=== PATIENT | female | born 1950 | race Caucasian/White ===

== ENCOUNTER 2016-11-18 13:10 | Inpatient (IN) | payer OTHER ==
[2017-01-13] MEDS ORDERED: TRANEXAMIC ACID 3,000 MG in NS 50 ML IRR ONE (06:00)
[2017-01-13] MEDS ORDERED: ROPIVACAINE 0.2% 80 MG, EPINEPHrine 0.2 MG, KETOROLAC TROMETHAMINE 30 MG in BAG 0 ML IU ONE (06:00)
[2017-01-13] MEDS ORDERED: TRANEXAMIC ACID 3,000 MG/50 ML BAG IRR ONE (09:14)
--- NOTE | 2017-01-13 09:29 | PDHPUP ---
History & Physical Update H&P update statement: This history and physical update is based on an assessment of the patient which was completed after admission or registration (within 24 hours), but prior to the surgery/procedure. H&P update: H&P reviewed & patient examined, no change in patient's condition since H&P completed
[2017-01-13] MEDS ORDERED: FAMOTIDINE 20 MG TAB PO ONE (09:43)
[2017-01-13] MEDS ORDERED: ACETAMINOPHEN 325 MG TAB PO ONE (09:43)
[2017-01-13] MEDS ORDERED: DEXAMETHASONE 4 MG/ML VIAL IVP ONE (09:43)
[2017-01-13] MEDS ORDERED: ceFAZolin 2 GM/DEXTROSE 100 ML IV ONE (09:43)
[2017-01-13] MEDS ORDERED: LIDOCAINE 1% 2 ML INJ ID PRN (09:44)
[2017-01-13] MEDS ORDERED: LR 1,000 ML IV ONE (09:44)
[2017-01-13] MEDS ORDERED: MIDAZOLAM 2 MG/2 ML VIAL IVP ONE (11:34)
--- NOTE | 2017-01-13 11:35 | PDANEPAE ---
ANE History of Present Illness Left hip osteoarthritis ANE Past Medical History - Cardiovascular History Hx Hypertension: No Hx Arrhythmias: No Hx Chest Pain: No Hx Coronary Artery / Peripheral Vascular Disease: No Hx CHF / Valvular Disease: No Hx Palpitations: No - Pulmonary History Hx COPD: No Hx Asthma/Reactive Airway Disease: No Hx Recent Upper Respiratory Infection: No Hx Oxygen in Use at Home: No Hx Sleep Apnea: Yes Sleep Apnea Screening Result - Last Documented: Positive Pulmonary History Comment: sleep apnea - Neurologic History Hx Cerebrovascular Accident: No Hx Seizures: No Hx Dementia: No - Endocrine History Hx Diabetes: No - Renal History Hx Renal Disorders: No - Liver History Hx Hepatic Disorders: No - Neurological & Psychiatric Hx Hx Neurological and Psychiatric Disorders: No - Cancer History Hx Cancer: No - Congenital Disorder History Hx Congenital Disorders: No - GI History Hx Gastrointestinal Disorders: Yes Gastrointestinal History Comment: acid reflux - Chronic Pain History Chronic Pain: Yes (left hip) - Surgical History Prior Surgeries: right hip replacement. left shoulder debridement 2011 ANE Review of Systems Review of Systems: - Exercise capacity METS (RN): 4 METS ANE Patient History - Allergies Allergies/Adverse Reactions: Penicillins Allergy (Verified 01/08/17 10:23) Rash - Home Medications Home Medications: Herbals/Supplements -Info Only 1 ea PO DAILY 01/08/17 [Last Taken Unknown] - NPO status NPO Since - Liquids (Date): 01/13/17 NPO Since - Liquids (Time): 07:00 NPO Since - Solids (Date): 01/12/17 NPO Since - Solids (Time): 19:00 - Smoking Hx Smoking Status: Former smoker - Family Anes Hx Family Hx Anesthesia Complications: none ANE Labs/Vital Signs - Vital Signs Blood Pressure: 137/74 Heart Rate: 52 Respiratory Rate: 16 O2 Sat (%): 96 Height: 170.18 cm Weight: 68.492 kg ANE Physical Exam - Airway Neck exam: FROM Mallampati Score: Class 3 Mouth exam: normal dental/mouth exam - Pulmonary Pulmonary: no respiratory distress - Cardiovascular Cardiovascular: regular rate and rhythym - ASA Status ASA Status: II ANE Anesthesia Plan Anesthesia Plan: MAC, spinal
[2017-01-13] MEDS ORDERED: MIDAZOLAM 2 MG/2 ML VIAL ONE (11:37)
[2017-01-13] MEDS ORDERED: PROPOFOL/EMULSION 500 MG/50 ML BOTTLE IV ONE (11:43)
[2017-01-13] MEDS ORDERED: NALOXONE HCL 0.4 MG/ML INJ IVP PRN ×2 (12:18→12:19)
[2017-01-13] MEDS ORDERED: HYDROCODONE/APAP 5/325 TAB PO PRN (12:19)
[2017-01-13] MEDS ORDERED: PROMETHAZINE HCL 25 MG/ML INJ IVP PRN ×2 (12:19→13:06)
[2017-01-13] MEDS ORDERED: ONDANSETRON 4 MG/2 ML VIAL IVP PRN ×2 (12:19→13:06)
[2017-01-13] MEDS ORDERED: DEXAMETHASONE 4 MG/ML VIAL ONE (13:05)
[2017-01-13] MEDS ORDERED: ONDANSETRON 4 MG/2 ML VIAL ONE (13:05)
--- NOTE | 2017-01-13 13:05 | POSTOPPROG ---
Post Op Note Date of Operation: 01/13/17 Surgeon: Rafat Dunn Dry Kiln Loader: yaron gurrola Anesthesiologist: zunilda Anesthesia: IV Sedation, Spinal Pre-op Diagnosis: L hip OA Post-op Diagnosis: L hip OA Indication: failed conservative therapies Procedure: L RAYMON Inf/Abcess present in the surg proc area at time of surgery?: No EBL: Minimal
[2017-01-13] MEDS ORDERED: POLYETHYLENE GLYCOL 3350 17 GM PKT PO PRN (13:06)
[2017-01-13] MEDS ORDERED: PROMETHAZINE HCL 25 MG SUPPR PR PRN (13:06)
[2017-01-13] MEDS ORDERED: DIPHENOXYLATE/ATROPINE LOMOTIL 1 TAB PO PRN (13:06)
[2017-01-13] MEDS ORDERED: MAGNESIUM HYDROXIDE 30 ML UDCUP PO PRN (13:06)
[2017-01-13] MEDS ORDERED: diphenhydrAMINE 25 MG CAP PO PRN (13:06)
[2017-01-13] MEDS ORDERED: ONDANSETRON DISINTEGRATING 4 MG TAB PO PRN (13:06)
[2017-01-13] MEDS ORDERED: TEMAZEPAM 15 MG CAP PO PRN (13:06)
[2017-01-13] MEDS ORDERED: METOCLOPRAMIDE 10 MG/2 ML VIAL IVP PRN (13:06)
[2017-01-13] MEDS ORDERED: LACTULOSE 20 GM/30 ML UDCUP PO PRN (13:06)
[2017-01-13] MEDS ORDERED: BISACODYL 10 MG SUPP PR PRN (13:06)
--- NOTE | 2017-01-13 13:16 | POSTANESTH ---
Post Anesthetic Evaluation Cardiovascular Status: Normal, Stable Respiratory Status: Normal, Stable Level of Consciousness/Mental Status: Can Participate in Eval Pain Control: Adequate, Prn Tx Ordered Nausea/Vomiting Control: Adequate, Prn Tx Ordered Complications Possibly Related to Anesthesia: None Noted
[2017-01-13] MEDS ORDERED: LR 1,000 ML IV SCH (13:30)
[2017-01-13] MEDS ORDERED: fentaNYL 100 MCG/2 ML INJ ONE (13:49)
[2017-01-13] MEDS: fentaNYL 100 MCG/2 ML INJ IVP PRN ×2 (13:50→14:21)
[2017-01-13] MEDS: oxyCODONE IR 5 MG TAB PO PRN ×2 (15:14→16:44)
[2017-01-13] MEDS: ACETAMINOPHEN 325 MG TAB PO SCH ×2 (17:58→23:27)
[2017-01-13] MEDS: CYCLOBENZAPRINE 10 MG TAB PO PRN (17:59)
[2017-01-13] MEDS: ceFAZolin 2 GM/DEXTROSE 100 ML IV SCH (20:32)
[2017-01-13] MEDS: FAMOTIDINE 20 MG TAB PO SCH (20:32)
[2017-01-13] MEDS: SENNOSIDES/DOCUSATE SODIUM TAB PO SCH (20:33)
[2017-01-13] MEDS: ASPIRIN 325 MG TAB PO SCH (22:15)
[2017-01-14] MEDS: ceFAZolin 2 GM/DEXTROSE 100 ML IV SCH (04:58)
[2017-01-14] MEDS: ACETAMINOPHEN 325 MG TAB PO SCH (04:59)
--- NOTE | 2017-01-14 05:41 | GOP ---
[f rep st] OPERATIVE REPORT DATE OF OPERATION: 01/13/2017 SURGEON: Iesha Dunn MD TRUCK GREASER: Deric Espinosa PA-C. ANESTHESIA: Spinal. PREOPERATIVE DIAGNOSIS: Left hip osteoarthritis POSTOPERATIVE DIAGNOSIS: Left hip osteoarthritis. PROCEDURE PERFORMED: Total hip arthroplasty with x-ray. FINDINGS: ESTIMATED BLOOD LOSS: 200 cc. INDICATIONS: The patient has progressively worsening arthritis of the hip which has failed medical m anagement. The patient understands the treatment options including continued non-operative care and has selected surgical intervention. The patient has decided to undergo total hip arthroplasty via th e direct anterior approach, understanding the risks of the procedure including, but not limited to, n eurovascular injury, infection, persistent pain, component wear and loosening, deep venous thrombosis , pulmonary embolism, limb length inequality, hip instability (including dislocation), and intra-oper ative fractures. DESCRIPTION OF PROCEDURE: After proper identification of the patient including verification and mayank ing the surgical site, the patient was brought to the operating room and placed in the supine positio n. All bony prominences were well padded. Anesthesia was induced without complication and intraveno us prophylactic antibiotics were administered prior to skin incision. The operative leg was placed in the Trumpf Arch table extension and the well leg in a Yellofin leg ho lder. The patient was prepped and draped in the usual sterile fashion. The C-arm was draped for int ra-operative fluoroscopy to check acetabular position, femoral component position including leg lengt h and femoral offset. Attention was then drawn to surgical exposure of the hip. An incision was made with a #10 [place] r blade starting 3 cm lateral and 3 cm distal to the anterior superior iliac spine measuring 8-10 cm and coursing distally toward the greater trochanter. The skin and subcutaneous tissues were divided sharply down to the fascia terry. The fascia terry was incised in line with the skin incision exposing the underlying tensor fascia terry muscle. The muscle was bluntly elevated from the fascia and the f irst extracapsular Cobra retractor was placed laterally at the junction of the superior femoral neck and greater trochanter. The lateral femoral circumflex vessels were identified, cauterized, and divi ded with the Aquamantys bipolar cautery. The deep investing fascia of the TFL was divided to allow p sophy mobilization of the muscle preventing damage during the retraction. The reflected head of the rectus femoris muscle was elevated off the anterior hip capsule and a medial Cobra retractor was plac ed just proximal to the lesser trochanter. The anterior capsulotomy was made sharply from the superolateral acetabulum to the saddle junction of the superior femoral neck and greater trochanter, then coursing inferomedial towards the lesser troc hanter. The retractors were then placed in the intracapsular position for femoral neck osteotomy. C orresponding to pre-operative templating, the osteotomy was made with the oscillating saw carefully p rotecting the greater trochanter and soft tissues. The femoral head was removed from the acetabulum with a corkscrew and confirmed to be severely arthritic with exposed bone, deformity and osteophytes. Similar findings were confirmed in the acetabulum. The Arch table extension was then placed in 40 degrees external rotation. Attention was then drawn to the acetabular preparation. After placement of the anterior and posterio r Cobra retractors outside the labrum and intracapsular, the circumferential labrum was removed sharp ly. The foveal contents were then removed and hemostasis obtained with cautery. The first reamer selected was sized using the removed femoral head. Reaming began with medialization and then commenced in 2 mm increments at 45 degrees of abduction and 15 degrees of anteversion using fluoroscopic navigation. Reaming ceased 1 mm less than the definitive acetabular component and liss esponded to the pre-operative templating. The final acetabular component was inserted using fluorosc opy to achieve proper orientation yielding excellent purchase and stability in the acetabulum. The f inal acetabular liner was then placed and its seating confirmed. Attention was then turned to the femur. The Arch table extension was placed in extension and adducti on, delivering the osteotomized femoral neck into the wound. A 2-pronged femoral elevator was placed at the calcar and another at the tip of the greater trochanter. The posterolateral capsule was rele ased with cautery allowing mobilization of the femur lateral and anterior for preparation. The exter nal rotators were visualized and preserved. A curette and rongeur were used to open the starting poi nt for broaching. Serial broaching started with the #0 broach and ended with the broach that exhibit ed excellent fit in the proximal femur. A change in pitch during mallet strikes was accompanied by t he inability to advance the broach any further. The trial reduction was performed and fluoroscopic n avigation was utilized to check limb length. Adjustments were made to equalize limb length according ly. After the final trials were accepted they were removed and the wound was copiously lavaged. The femo ral component was seated to the same depth as the final broach and the femoral head was impacted onto the clean trunnion. The hip was then reduced for the final time and once more fluoroscopy was used to check that limb length equality was achieved. The wound was irrigated and closed in layers, the fascia terry with 2-0 Quill, the subcutaneous tissue with 2-0 Quill, and the skin with Dermabond. Sterile dressings were applied. Final sharps and spon ge counts were accurate. The patient was then transferred to a hospital bed and brought to the [facility] room in stable condition. IMPLANTS: Accolade II, size 4 at 127. The acetabular component is 52 mm Tritanium. The liner is a trident X3, 32 mm. The head is a Biolox Delta 32 mm -4. /[id number]/MODL
[2017-01-14 05:44] LABS: HEMATOCRIT 33.3 % (38.0-47.0); HEMOGLOBIN 10.8 g/dL (12.6-16.3)
[2017-01-14] MEDS: FAMOTIDINE 20 MG TAB PO SCH (07:45)
[2017-01-14] MEDS: ASPIRIN 325 MG TAB PO SCH (07:45)
[2017-01-14] MEDS: CYCLOBENZAPRINE 10 MG TAB PO PRN (07:50)
[2017-01-14] MEDS: oxyCODONE IR 5 MG TAB PO PRN (07:50)
--- NOTE | 2017-01-14 07:54 | SOAPPROG ---
SOAP Progress Note Assessment/Plan: Assessment: Patient is doing well POD 1 s/p L RAYMON Pain management: pain is well controlled on oral pain meds. VTE ppx: recommend aspirin daily for 3 weeks, cont NICOLE and SCDs Anemia: level is expected initially postop. Asymptomatic. Continue to monitor D/c planning: d/c to home today pending release from PT Plan: 01/14/17 07:54 Objective: Vital Signs Temp Pulse Resp BP Pulse Ox 36.7 C 55 L 18 96/56 L 93 01/14/17 03:38 01/14/17 03:38 01/14/17 03:38 01/14/17 03:38 01/14/17 03:38 Laboratory Results 01/14/17 04:49 01/13/17 01/14/17 01/15/17 05:59 05:59 05:59 Intake Total 4045 Output Total 725 Balance 3320 ICD10 Worksheet Patient Problems: Problems Problem Status Onset Osteoarthritis of left hip Acute
--- NOTE | 2017-01-14 09:11 | GDS ---
[f rep st] DISCHARGE SUMMARY ADMISSION DIAGNOSIS: Left hip osteoarthritis. DISCHARGE DIAGNOSIS: Left hip osteoarthritis. PROCEDURE: Left total hip arthroplasty. VTE PROPHYLAXIS: Full strength aspirin x21 days. BRIEF DESCRIPTION OF HOSPITAL STAY: Patient was admitted for an elective joint arthroplasty. The pa tient tolerated the procedure well and has passed physical therapy. The patient was given appropriat e antibiotic prophylaxis and venous thromboembolism prophylaxis. The patient's pain was well control led on oral pain medication, patient was holding down food, and had urinated. Decision was made to d ischarge the patient. The patient was given postoperative prescriptions preoperatively. PLAN: Please follow up with Dr. Dunn as scheduled on February 01, 2017. /[id number]/MODL
[2017-01-14] MEDS: SENNOSIDES/DOCUSATE SODIUM TAB PO SCH (11:01)
[2017-01-14 11:26] VITALS: BP 92/58; PULSE 68; RESP 16; TEMP 98.1; O2SAT 95
--- NOTE | 2017-01-14 14:08 | ASDISCHSUM ---
Discharge Information Plan Status:Home with No Needs Medically Cleared to Leave: Discharge Date:01/14/2017 11:51 AM CM D/C Disposition:Home, Routine, Self-Care ADT D/C Disposition:Home, Routine, Self-Care Projected Discharge Date:01/14/2017 11:51 AM Transportation at D/C: Discharge Delay Reason: Follow-Up Date:01/14/2017 11:51 AM Discharge Slot: Final Diagnosis: Placement Information Patient Contact Information Contact Name:CELESTE Relationship: Address:[id number] Home Phone: City:[facility] Phone: [facility]/Zip Code:[place] [address] Email: Financial Information Financial Class:MC Primary Plan Desc:MEDICARE INPATIENT Primary Plan Number:[id number] Secondary Plan Desc: Secondary Plan Number: Assessment Information Intervention Information
== END 2017-01-14 11:51 | disposition home or self-care (01) | DRG 470 ==
LOC: F3E 01-13 09:26 → F3N 01-13 14:28
PROVIDERS: ADMIT Orthopaedic Surgery; ATTEND Orthopaedic Surgery
PROC: 0SRB04Z Replacement of Left Hip Joint with Ceramic on Polyethylene Synthetic Substitute, Open Approach (ICD-10-PCS; principal; 2017-01-13 12:15)
DX: M16.12 Unilateral primary osteoarthritis, left hip (principal)
CPT/HCPCS: 97116-GP; 97161-GP; 97165-GO; G8978-GP-CI; G8978-GP-CJ; G8979-GP-CI; G8980-GP-CI; G8987-GO-CI; G8988-GO-CI; G8989-GO-CI; J0171; J0690; J1100; J1885; J2250; J2405; J2704; J2795; J3010

== ENCOUNTER 2017-12-29 09:35 | Emergency (ER) | payer OTHER ==
[2017-12-29] MEDS ORDERED: NS 1,000 ML IV ONE (10:01)
--- NOTE | 2017-12-29 10:07 | EDPHY ---
H & P Stated Complaint: abdominal pain lower quadrants today, on left Time Seen by Provider: 12/29/17 09:38 HPI/ROS: Chief Complaint: Abdominal pain HPI: 67-year-old woman woke at 2 o'clock this morning with generalized abdominal pain. She states she has not been able to sleep for get comfortable all night. Some nausea no vomiting. No diarrhea or constipation. Last bowel movement was this morning was normal. No urinary urgency or frequency. Pain is about a 6/10. It is now migrated to her left side. She had a similar episode about a month ago which lasted 3 days which was less intense. No fevers or chills. No cough. No shortness of breath. Does not have a history of an abdominal surgeries in the past. ROS: 10 point Review of Systems is negative except as noted in the HPI. PMH: Bilateral hip arthroplasty Social History: No smoking, no alcohol, no recreational drug use Family History: non-contributory Physical Exam: Gen: Awake, Alert, No Distress HEENT: Nose: no rhinorrhea Eyes: PERRLA, EOMI Mouth: Moist mucosa Neck: Supple, no JVD Chest: nontender, lungs clear to auscultation Heart: S1, S2 normal, no murmur Abd: Soft, moderate tenderness in the left abdomen and mild right lower quadrant , no guarding Back: no CVA tenderness, no midline tenderness Ext: no edema, non-tender Skin: no rash Neuro: CN II-XII intact, Sensation grossly intact, Strength 5/5 in bilateral upper and lower extremities - Personal History Current Tetanus Diphtheria and Acellular Pertussis (TDAP): Unsure Tetanus Vaccine Date: >10 YRS - Medical/Surgical History Hx Asthma: No Hx Chronic Respiratory Disease: No Hx Diabetes: No Hx Cardiac Disease: No Hx Renal Disease: No Hx Cirrhosis: No Hx Alcoholism: No Hx HIV/AIDS: No Hx Splenectomy or Spleen Trauma: No Other PMH: ORTHO SURGERY -bilateral HIP REPLACEMENT, sleep apnea-CPAP, GERD, R shoulder debridement - Social History Smoking Status: Former smoker Constitutional: Initial Vital Signs Temperature (C) 37 C 12/29/17 09:46 Heart Rate 64 12/29/17 09:46 Respiratory Rate 14 12/29/17 09:46 Blood Pressure 185/80 H 12/29/17 09:46 O2 Sat (%) 93 12/29/17 09:46 O2 Delivery Mode Room Air Allergies/Adverse Reactions: Penicillins Allergy (Verified 12/29/17 09:44) Rash Home Medications: Medication Instructions Recorded Acetaminophen [Tylenol 325mg (*)] 650 mg PO Q6HRS tab 01/13/17 Hydrocodone/Acetaminophen 1 - 2 each PO Q4-6PRN PRN #10 12/29/17 [Hydrocodon-Acetaminophen 5-325] tablet Ondansetron Odt [Zofran Odt 4 mg 4 mg PO Q4 PRN #10 tab 12/29/17 (*)] Medical Decision Making - Diagnostics Imaging Results: Imaging Impressions Abdomen CT 12/29/17 10:01 Impression: 1. Adenopathy in the abdomen, which could related to lymphoproliferative disease (such as lymphoma) or juan metastases. PET/CT may be useful for further evaluation. 2. 3 cm indeterminate anterior splenic mass, which could also be related to lymphoma, metastasis, or hemangioma. 3. Indeterminate circumscribed structure at the posterior aspect of the pancreatic tail, which could be related to pseudocyst, cystic pancreatic malignancy, benign pancreatic cyst, or other etiology. 4. Additional findings as above. Findings discussed with Deric Toth MD, 12/29/2017 at 11:27. Imaging: Discussed imaging studies w/ call center associate Radiologist ED Course/Re-evaluation: CT scans noted. I have discussed with Dr. Randy Jimenez, oncology. He has requested adding on LDH in caused the blood workup ordered. He has been given the patient's phone number. He will call her to arrange for an appointment in the office either later this afternoon or tomorrow. I have given the patient hydrocodone and and ondansetron for pain and nausea. I have also instructed her to call Dr. Jimenez's office if she does not hear from him by later this afternoon. - Data Points Laboratory Results: 12/29/17 10:15 POC Sodium 143 mEq/L mEq/L (135-145) POC Potassium 3.8 mEq/L mEq/L (3.3-5.0) POC Chloride 107.0 mEq/L mEq/L (97-110) POC Total CO2 28 mEq/L mEq/L (22-31) POC BUN 12 mg/dL mg/dL (7-23) POC Creatinine 0.7 mg/dL mg/dL (0.6-1.0) POC Glucose 105 mg/dL H mg/dL (70-100) POC Calcium 10.7 mg/dL H mg/dL (8.5-10.4) Medications Given: Discontinued Medications Sodium Chloride (Ns) 1,000 mls @ 0 mls/hr IV ONCE ONE; Wide Open PRN Reason: Protocol Stop: 12/29/17 10:02 Last Admin: 12/29/17 10:12 Dose: 1,000 mls Point of Care Test Results: Chemistry 12/29/17 10:15 POC Sodium 143 mEq/L mEq/L (135-145) POC Potassium 3.8 mEq/L mEq/L (3.3-5.0) POC Chloride 107.0 mEq/L mEq/L (97-110) POC Total CO2 28 mEq/L mEq/L (22-31) POC BUN 12 mg/dL mg/dL (7-23) POC Creatinine 0.7 mg/dL mg/dL (0.6-1.0) POC Glucose 105 mg/dL H mg/dL (70-100) POC Calcium 10.7 mg/dL H mg/dL (8.5-10.4) Urine Dip Collection Date 12/29/17 Collection Time 11:05 Specific [place] (1.002-1.030) 1.015 PH (5.0-7.5) 8.0 Leukocytes (Negative) 1+ Nitrites (Negative) Negative Protein (Negative) Negative Glucose (Negative) Negative Ketones (Negative) Negative Urobilnogen (0.2-1.0 EU) 0.2 Bilirubin (Negative) Negative Blood (Negative) Negative Departure - Departure Disposition: Home, Routine, Self-Care Clinical Impression: Abdominal mass Condition: Good Instructions: Abdominal Pain (ED) Additional Instructions: You may take hydrocodone with acetaminophen, 1-2 tablets every 4-6 hours as needed for pain. You may take ondansetron as needed for nausea. Follow up with Dr. Randy Jimenez, oncology at the [facility]. He should call you today to set up an appointment for today or tomorrow. If you do not hear from his office by 2 o'clock p.m. Please give them a call at [phone]. Referrals: Randy Jimenez MD [Medical Doctor] - As per Instructions Prescriptions: Hydrocodone/Acetaminophen [Hydrocodon-Acetaminophen 5-325] 1 - 2 each PO Q4- 6PRN PRN #10 tablet PRN Reason: Pain, Severe Ondansetron Odt [Zofran Odt 4 mg (*)] 4 mg PO Q4 PRN #10 tab PRN Reason: nausea
[2017-12-29] MEDS ORDERED: IOPAMIDOL (ISOVUE-300) 100 ML BTL ONE (10:30)
[2017-12-29] MEDS ORDERED: HYDROCODONE/APAP 5/325 TAB PO ONE (12:00)
[2017-12-29] MEDS ORDERED: ONDANSETRON DISINTEGRATING 4 MG TAB PO ONE (12:01)
[2017-12-29 12:27] VITALS: BP 148/80
[2017-12-29 17:27] LABS: PLATELET COUNT 234 10^3/uL (150-400)
[2017-12-29 17:40] LABS: INR 0.91 (0.83-1.16); PROTIME(PATIENT) 12.5 SEC (12.0-15.0)
== END 2017-12-29 12:25 | disposition home or self-care (01) ==
LOC: CED 09:35
DX: R19.00 Intra-abdominal and pelvic swelling, mass and lump, unspecified site (principal); E86.9 Volume depletion, unspecified; Z87.891 Personal history of nicotine dependence
CPT/HCPCS: 74177; 96360; 99285; Q9967; 80048-PO; 82232-90; 86705-90; G0472

== ENCOUNTER → 2018-01-28 | Outpatient (CLI) | payer OTHER | LOC: BHFA 13:15 | PROVIDERS: ATTEND Internal Medicine Cardiovascular Disease | DX: Z51.11 Encounter for antineoplastic chemotherapy (principal) ==

== ENCOUNTER → 2018-02-02 | Outpatient (CLI) | payer OTHER | LOC: FIMAGING 11:25 | PROVIDERS: ATTEND Physician Assistant Surgical | DX: C85.90 Non-Hodgkin lymphoma, unspecified, unspecified site (principal); Z95.828 Presence of other vascular implants and grafts ==